=== PATIENT | female | born 1955 | race Caucasian/White ===

== ENCOUNTER 2017-12-23 20:22 | Emergency (ER) | payer OTHER ==
--- NOTE | 2017-12-23 20:34 | PDOC ---
Rapid Medical Evaluation Time Seen by Provider: 12/23/17 20:31 Medical Evaluation: Allergies Allergy/AdvReac Type Severity Reaction Status Date / Time acetaminophen AdvReac Nausea Verified 05/31/16 06:49 [From Tylenol-Codeine #3] codeine phosphate AdvReac Vomiting Verified 05/31/16 06:49 [From Tylenol-Codeine #3] oxycodone HCl [From Percocet] AdvReac Vomiting Verified 05/31/16 06:49 12/23/17 20:32 I have performed a brief in-person evaluation of this patient. The patient presents with a chief complaint of: L shoulder pain x 3 days, hx of asthma, "pain that feels like a burn from top of shoulders to tip of fingers, the pain goes to my back too", SOB, hx of HTN, DM, smoking Pertinent physical exam findings: dyspnea, BP 185/115, tachy to 110 I have ordered the following: cards workup The patient will proceed to the ED for further evaluation. Discharge Disposition - Diagnosis Left arm pain - Referrals - Patient Instructions - Post Discharge Activity
[2017-12-23] MEDS ORDERED: ASPIRIN 81 MG CHEWABLE TABLETS PO ONE (20:35)
[2017-12-23 20:37] VITALS: BMI 34.3
[2017-12-23] MEDS ORDERED: ASPIRIN 81 MG CHEWABLE TABLETS ONE (20:47)
[2017-12-23 20:52] LABS: BASO % 0.9 % (0-2.0); EOS % 0.9 % (0-4.5); HEMATOCRIT 49.3 % (32.4-45.2); HEMOGLOBIN 16.2 GM/dL (10.7-15.3); LYMPH % 25.7 % (8-40); MCH 26.1 pg (25.7-33.7); MCHC 32.8 g/dl (32.0-36.0); MEAN CELL VOLUME 79.6 fl (80-96); MONO % 9.2 % (3.8-10.2); NEUT % 63.3 % (42.8-82.8); PLATELET COUNT 259 K/MM3 (134-434); RBC 6.19 M/mm3 (3.60-5.2); WHITE BLOOD COUNT 16.9 K/mm3 (4.0-10.0)
[2017-12-23] MEDS ORDERED: IBUPROFEN 600 MG TABLET (FP) PO ONE ×2 (21:10→21:12)
[2017-12-23 21:27] LABS: ALBUMIN 3.9 g/dl (3.4-5.0); ANION GAP 8 (8-16); BILIRUBIN,TOTAL 0.3 mg/dL (0.2-1.0); BLOOD UREA NITROGEN 19 mg/dL (7-18); CALCIUM 8.8 mg/dL (8.5-10.1); CHLORIDE 105 mmol/L (98-107); CO2 26 mmol/L (21-32); CREATININE 0.9 mg/dL (0.55-1.02); GLUCOSE,RANDOM 215 mg/dL (74-106); POTASSIUM 3.9 mmol/L (3.5-5.1); SGOT/AST 13 U/L (15-37); SODIUM 139 mmol/L (136-145); TOT PROT 7.5 g/dl (6.4-8.2)
[2017-12-23 21:31] LABS: INR 0.96 (0.82-1.09); PROTHROMBIN TIME (PATIENT) 10.8 SEC (9.98-11.88)
[2017-12-23 21:33] LABS: ALK PHOS 110 U/L (45-117); SGPT/ALT 26 U/L (12-78)
[2017-12-23 23:31] LABS: URINE APPEARANCE CLOUDY; URINE BILIRUBIN NEGATIVE (NEGATIVE); URINE BLOOD 2+ (NEGATIVE); URINE COLOR YELLOW; URINE GLUCOSE (UA) 3+ (NEGATIVE); URINE KETONE TRACE (NEGATIVE); URINE NITRITE NEGATIVE (NEGATIVE); URINE UROBILINOGEN NEGATIVE mg/dL (0.2-1.0)
[2017-12-23 23:33] LABS: URINE LEUK ESTERASE 3+ (NEGATIVE); URINE PROTEIN 2+ (NEGATIVE)
[2017-12-23 23:47] LABS: EPI CELLS MANY /HPF (FEW); GRANULAR CASTS 3 /lpf; URINE MUCUS RARE
[2017-12-24] MEDS ORDERED: morphine CARPU-JECT 2 MG/1 ML DISP.SYRIN IVPUSH ONE (01:07)
[2017-12-24] MEDS ORDERED: morphine CARPU-JECT 2 MG/1 ML DISP.SYRIN IM STA (01:12)
[2017-12-24] MEDS ORDERED: diazePAM 2 MG TABLET PO ONE (01:15)
[2017-12-24] MEDS ORDERED: MORPHINE SULFATE 10 MG/1 ML *VIAL ONE (01:18)
[2017-12-24] MEDS ORDERED: diazePAM 2 MG TABLET ONE (01:18)
[2017-12-24] MEDS ORDERED: amLODIPine BESYLATE 10 MG TABLET (FP) PO ONE (01:21)
[2017-12-24] MEDS ORDERED: amLODIPine BESYLATE 5 MG TABLET (FP) ONE (01:24)
[2017-12-24] MEDS ORDERED: HYDROCHLOROTHIAZIDE 25 MG TABLET (FP) PO ONE (02:08)
[2017-12-24] MEDS ORDERED: cloNIDine HCL 0.1 MG TABLET PO ONE (02:09)
--- NOTE | 2017-12-24 02:10 | PDOC ---
History of Present Illness - General Chief Complaint: Pain, Acute Stated Complaint: ARM PAIN Time Seen by Provider: 12/23/17 20:31 Past History - Past Medical History Allergies/Adverse Reactions: Allergies Allergy/AdvReac Type Severity Reaction Status Date / Time acetaminophen AdvReac Nausea Verified 05/31/16 06:49 [From Tylenol-Codeine #3] codeine phosphate AdvReac Vomiting Verified 05/31/16 06:49 [From Tylenol-Codeine #3] oxycodone HCl [From Percocet] AdvReac Vomiting Verified 05/31/16 06:49 Home Medications: Ambulatory Orders Albuterol Sulfate Inhaler - [Ventolin HFA Inhaler -] 2 inh PO Q6H PRN 05/23/16 Aspirin [Aspirin EC] 81 mg PO DAILY 05/23/16 Fluticasone Prop 0.05% Nasal [Flonase -] 1 - 2 spray NS DAILY PRN 05/23/16 Lisinopril 10 mg PO DAILY 05/23/16 Montelukast Na [Singulair -] 10 mg PO HS 05/23/16 Hydrocodone/Ibuprofen [Hydrocodone-Ibuprofen 5-200 mg] 1 - 2 each PO Q6H #50 tablet MDD 8 05/31/16 Ciprofloxacin [Cipro -] 500 mg PO Q12H #14 tablet 12/24/17 Ibuprofen [Motrin -] 600 mg PO TID PRN #21 tablet 12/24/17 Asthma: Yes Cancer: No Cardiac Disorders: No CVA: No COPD: No CHF: No Dementia: No Diabetes: Yes GI Disorders: No Disorders: No HTN: Yes Hypercholesterolemia: No Liver Disease: No Seizures: No Thyroid Disease: No - Surgical History Abdominal Surgery: No Appendectomy: No Cardiac Surgery: No Cholecystectomy: Yes Lung Surgery: No Neurologic Surgery: No Orthopedic Surgery: No - Suicide/Smoking/Psychosocial Hx Smoking History: Former smoker Have you smoked in the past 12 months: Yes Number of Cigarettes Smoked Daily: 10 Information on smoking cessation initiated: No 'Breaking Loose' booklet given: 03/11/14 Hx Alcohol Use: No Drug/Substance Use Hx: No Substance Use Type: None Hx Substance Use Treatment: No *Physical Exam - Vital Signs Last Vital Signs Temp Pulse Resp BP Pulse Ox 97.4 F L 99 H 21 187/134 99 12/24/17 02:06 12/24/17 01:27 12/24/17 02:06 12/24/17 02:06 12/24/17 02:06 ED Treatment Course - LABORATORY CBC & Chemistry Diagram: 12/23/17 20:42 12/23/17 20:42 - ADDITIONAL ORDERS Additional order review: Laboratory Results 12/23/17 12/23/17 12/23/17 23:23 20:42 20:42 PT with INR INR Sodium 139 Potassium 3.9 Chloride 105 Carbon Dioxide 26 Anion Gap 8 BUN 19 H Creatinine 0.9 Creat Clearance w eGFR > 60 Random Glucose 215 H Calcium 8.8 Magnesium 2.0 Total Bilirubin 0.3 D AST 13 L ALT 26 Alkaline Phosphatase 110 Creatine Kinase 49 Troponin I < 0.02 B-Natriuretic Peptide 757.01 H Total Protein 7.5 Albumin 3.9 Urine Color Yellow Urine Appearance Cloudy Urine pH 5.0 Ur Specific [place] 1.020 Urine Protein 2+ H Urine Glucose (UA) 3+ H Urine Ketones Trace H Urine Blood 2+ H Urine Nitrite Negative Urine Bilirubin Negative Urine Urobilinogen Negative Ur Leukocyte Esterase 3+ H Urine WBC (Auto) 64 Urine RBC (Auto) 5 Ur Epithelial Cells Many Granular Casts 3 Urine Mucus Rare 12/23/17 20:42 PT with INR 10.80 INR 0.96 Sodium Potassium Chloride Carbon Dioxide Anion Gap BUN Creatinine Creat Clearance w eGFR Random Glucose Calcium Magnesium Total Bilirubin AST ALT Alkaline Phosphatase Creatine Kinase Troponin I B-Natriuretic Peptide Total Protein Albumin Urine Color Urine Appearance Urine pH Ur Specific [place] Urine Protein Urine Glucose (UA) Urine Ketones Urine Blood Urine Nitrite Urine Bilirubin Urine Urobilinogen Ur Leukocyte Esterase Urine WBC (Auto) Urine RBC (Auto) Ur Epithelial Cells Granular Casts Urine Mucus 12/23/17 20:42 RBC 6.19 H D MCV 79.6 L MCHC 32.8 RDW 15.0 MPV 9.0 Neutrophils % 63.3 Lymphocytes % 25.7 Monocytes % 9.2 D Eosinophils % 0.9 D Basophils % 0.9 - Medications Given in the ED: ED Medications Discontinued Medications Generic Name Dose Route Start Last Admin Trade Name Freq PRN Reason Stop Dose Admin Amlodipine Besylate 10 mg 12/24/17 01:21 12/24/17 01:26 Norvasc - PO 12/24/17 01:22 10 mg ONCE ONE Administration Aspirin 162 mg 12/23/17 20:35 12/23/17 20:48 Asa - PO 12/23/17 20:36 162 mg ONCE ONE Administration Diazepam 2 mg 12/24/17 01:15 12/24/17 01:23 Valium - PO 12/24/17 01:16 2 mg ONCE ONE Administration Ibuprofen 600 mg 12/23/17 21:10 12/23/17 21:17 Motrin - PO 12/23/17 21:11 600 mg ONCE ONE Administration Levofloxacin 500 mg 12/24/17 01:55 12/24/17 02:07 Levaquin - PO 12/24/17 01:56 500 mg ONCE ONE Administration Morphine Sulfate 2 mg 12/24/17 01:07 12/24/17 01:47 Morphine Injection - IVPUSH 12/24/17 01:08 Not Given ONCE ONE Morphine Sulfate 4 mg 12/24/17 01:12 12/24/17 01:23 Morphine Injection - IM 12/24/17 01:13 4 mg ONCE STA Administration *DC/Admit/Observation/Transfer Diagnosis at time of Disposition: Left arm pain, Pain of left scapula Hypertension Qualifiers: Hypertension type: unspecified Qualified Code(s): I10 - Essential (primary) hypertension - Discharge Dispostion Condition at time of disposition: Improved - Prescriptions Prescriptions: Ciprofloxacin [Cipro -] 500 mg PO Q12H #14 tablet Ibuprofen [Motrin -] 600 mg PO TID PRN #21 tablet PRN Reason: Pain Level 6-10 - Referrals - Patient Instructions Printed Discharge Instructions: DI for High Blood Pressure Additional Instructions: You need to see your regular doctor this week to further evaluate your blood pressure you need to see the orthopedist for your 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
[2017-12-24] MEDS ORDERED: HYDROCHLOROTHIAZIDE 25 MG TABLET (FP) ONE (02:15)
[2017-12-24] MEDS ORDERED: cloNIDine HCL 0.1 MG TABLET ONE (02:15)
[2017-12-24] MEDS ORDERED: hydrALAZINE HCL 20 MG/ML VIAL IVPUSH ONE (03:37)
[2017-12-24] MEDS ORDERED: hydrALAZINE HCL 20 MG/ML VIAL ONE (03:39)
[2017-12-24] MEDS ORDERED: ONDANSETRON 4 MG/2 ML VIAL IVPUSH STA (03:49)
[2017-12-24] MEDS ORDERED: ONDANSETRON 4 MG/2 ML VIAL ONE (03:50)
[2017-12-24] MEDS ORDERED: METOPROLOL TARTRATE 5 MG/5 ML VIAL IVPUSH ONE (05:43)
[2017-12-24] MEDS ORDERED: METOPROLOL TARTRATE 5 MG/5 ML VIAL ONE (05:50)
[2017-12-24 06:31] VITALS: TEMP 97.6
[2017-12-24] MEDS ORDERED: NITROGLYCERIN 2% OINTMENT - 1GM PACKET TD ONE ×2 (06:40→06:43)
--- NOTE | 2017-12-24 06:43 | PDOC ---
*Physical Exam - Vital Signs Last Vital Signs Temp Pulse Resp BP Pulse Ox 97.6 F 68 17 179/91 98 12/24/17 06:31 12/24/17 06:31 12/24/17 06:31 12/24/17 06:31 12/24/17 06:31 ED Treatment Course - LABORATORY CBC & Chemistry Diagram: 12/23/17 20:42 12/23/17 20:42 - ADDITIONAL ORDERS Additional order review: Laboratory Results 12/23/17 12/23/17 12/23/17 23:23 20:42 20:42 PT with INR INR Sodium 139 Potassium 3.9 Chloride 105 Carbon Dioxide 26 Anion Gap 8 BUN 19 H Creatinine 0.9 Creat Clearance w eGFR > 60 Random Glucose 215 H Calcium 8.8 Magnesium 2.0 Total Bilirubin 0.3 D AST 13 L ALT 26 Alkaline Phosphatase 110 Creatine Kinase 49 Troponin I < 0.02 B-Natriuretic Peptide 757.01 H Total Protein 7.5 Albumin 3.9 Urine Color Yellow Urine Appearance Cloudy Urine pH 5.0 Ur Specific [place] 1.020 Urine Protein 2+ H Urine Glucose (UA) 3+ H Urine Ketones Trace H Urine Blood 2+ H Urine Nitrite Negative Urine Bilirubin Negative Urine Urobilinogen Negative Ur Leukocyte Esterase 3+ H Urine WBC (Auto) 64 Urine RBC (Auto) 5 Ur Epithelial Cells Many Granular Casts 3 Urine Mucus Rare 12/23/17 20:42 PT with INR 10.80 INR 0.96 Sodium Potassium Chloride Carbon Dioxide Anion Gap BUN Creatinine Creat Clearance w eGFR Random Glucose Calcium Magnesium Total Bilirubin AST ALT Alkaline Phosphatase Creatine Kinase Troponin I B-Natriuretic Peptide Total Protein Albumin Urine Color Urine Appearance Urine pH Ur Specific [place] Urine Protein Urine Glucose (UA) Urine Ketones Urine Blood Urine Nitrite Urine Bilirubin Urine Urobilinogen Ur Leukocyte Esterase Urine WBC (Auto) Urine RBC (Auto) Ur Epithelial Cells Granular Casts Urine Mucus 12/23/17 20:42 RBC 6.19 H D MCV 79.6 L MCHC 32.8 RDW 15.0 MPV 9.0 Neutrophils % 63.3 Lymphocytes % 25.7 Monocytes % 9.2 D Eosinophils % 0.9 D Basophils % 0.9 - Medications Given in the ED: ED Medications Discontinued Medications Generic Name Dose Route Start Last Admin Trade Name Freq PRN Reason Stop Dose Admin Amlodipine Besylate 10 mg 12/24/17 01:21 12/24/17 01:26 Norvasc - PO 12/24/17 01:22 10 mg ONCE ONE Administration Aspirin 162 mg 12/23/17 20:35 12/23/17 20:48 Asa - PO 12/23/17 20:36 162 mg ONCE ONE Administration Clonidine 0.1 mg 12/24/17 02:09 12/24/17 02:18 Catapres - PO 12/24/17 02:10 0.1 mg ONCE ONE Administration Diazepam 2 mg 12/24/17 01:15 12/24/17 01:23 Valium - PO 12/24/17 01:16 2 mg ONCE ONE Administration Hydralazine HCl 10 mg 12/24/17 03:37 12/24/17 03:53 Apresoline Injection - IVPUSH 12/24/17 03:38 10 mg ONCE ONE Administration Hydrochlorothiazide 25 mg 12/24/17 02:08 12/24/17 02:18 Hctz - PO 12/24/17 02:09 25 mg ONCE ONE Administration Ibuprofen 600 mg 12/23/17 21:10 12/23/17 21:17 Motrin - PO 12/23/17 21:11 600 mg ONCE ONE Administration Levofloxacin 500 mg 12/24/17 01:55 12/24/17 02:07 Levaquin - PO 12/24/17 01:56 500 mg ONCE ONE Administration Metoprolol Tartrate 10 mg 12/24/17 05:43 12/24/17 05:49 Lopressor Injection - IVPUSH 12/24/17 05:44 10 mg ONCE ONE Administration Morphine Sulfate 2 mg 12/24/17 01:07 12/24/17 01:47 Morphine Injection - IVPUSH 12/24/17 01:08 Not Given ONCE ONE Morphine Sulfate 4 mg 12/24/17 01:12 12/24/17 01:23 Morphine Injection - IM 12/24/17 01:13 4 mg ONCE STA Administration Ondansetron HCl 4 mg 12/24/17 03:49 12/24/17 03:53 Zofran Injection IVPUSH 12/24/17 03:50 4 mg ONCE STA Administration Oxycodone/Acetaminophen 2 combo 12/24/17 02:31 12/24/17 02:38 Percocet 5/325 - PO 12/24/17 02:32 2 combo ONCE ONE Administration Medical Decision Making - Medical Decision Making 12/24/17 06:40 Pt BP is still high, however pt is asymptomatic at this time. Pt wants to get the BP down so that she can go home. Pt will still be treated and will be signed out to AM physician. *DC/Admit/Observation/Transfer Diagnosis at time of Disposition: Left arm pain, Pain of left scapula Hypertension Qualifiers: Hypertension type: unspecified Qualified Code(s): I10 - Essential (primary) hypertension - Discharge Dispostion Condition at time of disposition: Improved - Prescriptions Prescriptions: Ciprofloxacin [Cipro -] 500 mg PO Q12H #14 tablet Ibuprofen [Motrin -] 600 mg PO TID PRN #21 tablet PRN Reason: Pain Level 6-10 - Referrals - Patient Instructions Printed Discharge Instructions: DI for High Blood Pressure Additional Instructions: You need to see your regular doctor this week to further evaluate your blood pressure you need to see the orthopedist for your 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
--- NOTE | 2017-12-24 08:58 | PDOC ---
*Physical Exam - Vital Signs Last Vital Signs Temp Pulse Resp BP Pulse Ox 97.6 F 75 18 174/95 98 12/24/17 06:31 12/24/17 08:10 12/24/17 08:10 12/24/17 08:10 12/24/17 08:10 - Physical Exam Comments: 12/24/17 08:51 Patient is a well-appearing 62-year-old female with history of hypertension, diabetes, who presented to the ER with elevated blood pressure and symptoms of urinary tract infection. Patient's received numerous by mouth and IV meds for elevated blood pressure. Patient is symptom-free. Patient is also received Levaquin for a suspected UTI. Patient was blood pressure is noted to be 171/91. Patient displays no evidence of end organ damage. CBC reveals leukocytosis with elevated H&H likely related to hemoconcentration. Urine cultures been obtained. I've discussed hypertension treatment with patient. She'll be discharged with was in January/hydrochlorothiazide with outpatient follow-up further management of and evaluation of high blood pressure. ED Treatment Course - LABORATORY CBC & Chemistry Diagram: 12/23/17 20:42 12/23/17 20:42 - ADDITIONAL ORDERS Additional order review: Laboratory Results 12/23/17 12/23/17 12/23/17 23:23 20:42 20:42 PT with INR INR Sodium 139 Potassium 3.9 Chloride 105 Carbon Dioxide 26 Anion Gap 8 BUN 19 H Creatinine 0.9 Creat Clearance w eGFR > 60 Random Glucose 215 H Calcium 8.8 Magnesium 2.0 Total Bilirubin 0.3 D AST 13 L ALT 26 Alkaline Phosphatase 110 Creatine Kinase 49 Troponin I < 0.02 B-Natriuretic Peptide 757.01 H Total Protein 7.5 Albumin 3.9 Urine Color Yellow Urine Appearance Cloudy Urine pH 5.0 Ur Specific [place] 1.020 Urine Protein 2+ H Urine Glucose (UA) 3+ H Urine Ketones Trace H Urine Blood 2+ H Urine Nitrite Negative Urine Bilirubin Negative Urine Urobilinogen Negative Ur Leukocyte Esterase 3+ H Urine WBC (Auto) 64 Urine RBC (Auto) 5 Ur Epithelial Cells Many Granular Casts 3 Urine Mucus Rare 12/23/17 20:42 PT with INR 10.80 INR 0.96 Sodium Potassium Chloride Carbon Dioxide Anion Gap BUN Creatinine Creat Clearance w eGFR Random Glucose Calcium Magnesium Total Bilirubin AST ALT Alkaline Phosphatase Creatine Kinase Troponin I B-Natriuretic Peptide Total Protein Albumin Urine Color Urine Appearance Urine pH Ur Specific [place] Urine Protein Urine Glucose (UA) Urine Ketones Urine Blood Urine Nitrite Urine Bilirubin Urine Urobilinogen Ur Leukocyte Esterase Urine WBC (Auto) Urine RBC (Auto) Ur Epithelial Cells Granular Casts Urine Mucus 12/23/17 20:42 RBC 6.19 H D MCV 79.6 L MCHC 32.8 RDW 15.0 MPV 9.0 Neutrophils % 63.3 Lymphocytes % 25.7 Monocytes % 9.2 D Eosinophils % 0.9 D Basophils % 0.9 - Medications Given in the ED: ED Medications Discontinued Medications Generic Name Dose Route Start Last Admin Trade Name Freq PRN Reason Stop Dose Admin Amlodipine Besylate 10 mg 12/24/17 01:21 12/24/17 01:26 Norvasc - PO 12/24/17 01:22 10 mg ONCE ONE Administration Aspirin 162 mg 12/23/17 20:35 12/23/17 20:48 Asa - PO 12/23/17 20:36 162 mg ONCE ONE Administration Clonidine 0.1 mg 12/24/17 02:09 12/24/17 02:18 Catapres - PO 12/24/17 02:10 0.1 mg ONCE ONE Administration Diazepam 2 mg 12/24/17 01:15 12/24/17 01:23 Valium - PO 12/24/17 01:16 2 mg ONCE ONE Administration Hydralazine HCl 10 mg 12/24/17 03:37 12/24/17 03:53 Apresoline Injection - IVPUSH 12/24/17 03:38 10 mg ONCE ONE Administration Hydrochlorothiazide 25 mg 12/24/17 02:08 12/24/17 02:18 Hctz - PO 12/24/17 02:09 25 mg ONCE ONE Administration Ibuprofen 600 mg 12/23/17 21:10 12/23/17 21:17 Motrin - PO 12/23/17 21:11 600 mg ONCE ONE Administration Levofloxacin 500 mg 12/24/17 01:55 12/24/17 02:07 Levaquin - PO 12/24/17 01:56 500 mg ONCE ONE Administration Metoprolol Tartrate 10 mg 12/24/17 05:43 12/24/17 05:49 Lopressor Injection - IVPUSH 12/24/17 05:44 10 mg ONCE ONE Administration Morphine Sulfate 2 mg 12/24/17 01:07 12/24/17 01:47 Morphine Injection - IVPUSH 12/24/17 01:08 Not Given ONCE ONE Morphine Sulfate 4 mg 12/24/17 01:12 12/24/17 01:23 Morphine Injection - IM 12/24/17 01:13 4 mg ONCE STA Administration Nitroglycerin 1 inch 12/24/17 06:40 12/24/17 06:46 Nitro-Bid 2% Paste - TD 12/24/17 06:41 1 inch ONCE ONE Administration Ondansetron HCl 4 mg 12/24/17 03:49 12/24/17 03:53 Zofran Injection IVPUSH 12/24/17 03:50 4 mg ONCE STA Administration Oxycodone/Acetaminophen 2 combo 12/24/17 02:31 12/24/17 02:38 Percocet 5/325 - PO 12/24/17 02:32 2 combo ONCE ONE Administration *DC/Admit/Observation/Transfer Diagnosis at time of Disposition: Left arm pain, Pain of left scapula Hypertension Qualifiers: Hypertension type: unspecified Qualified Code(s): I10 - Essential (primary) hypertension Urinary tract infection Qualifiers: Urinary tract infection type: acute cystitis Hematuria presence: with hematuria Qualified Code(s): N30.01 - Acute cystitis with hematuria - Discharge Dispostion Disposition: HOME Condition at time of disposition: Stable - Prescriptions Prescriptions: Ciprofloxacin [Cipro -] 500 mg PO Q12H #14 tablet Ibuprofen [Motrin -] 600 mg PO TID PRN #21 tablet PRN Reason: Pain Level 6-10 - Referrals - Patient Instructions Printed Discharge Instructions: DI for High Blood Pressure, DI for Urinary Tract Infection (UTI) Additional Instructions: You need to see your regular doctor this week to further evaluate your blood pressure you need to see the orthopedist for 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
[2017-12-24 09:05] VITALS: BP 169/99; PULSE 76
--- NOTE | 2017-12-24 11:06 | EKG ---
Test Reason : Blood Pressure : / mmHG Vent. Rate : 097 BPM Atrial Rate : 097 BPM P-R Int : 150 ms QRS Dur : 078 ms QT Int : 366 ms P-R-T Axes : 057 -16 037 degrees QTc Int : 464 ms POOR DATA QUALITY, INTERPRETATION MAY BE ADVERSELY AFFECTED NORMAL SINUS RHYTHM SEPTAL INFARCT , AGE UNDETERMINED ABNORMAL ECG WHEN COMPARED WITH ECG OF 23-MAY-2016 11:25, VENT. RATE HAS INCREASED BY 33 BPM SEPTAL INFARCT IS NOW PRESENT NONSPECIFIC T WAVE ABNORMALITY NO LONGER EVIDENT IN LATERAL LEADS Confirmed by EDIE YBARRA, KYLE ([id number]) on 12/24/2017 11:05:38 AM Referred By: Confirmed By:KYLE IRIZARRY MD
== END 2017-12-24 09:05 | disposition home or self-care (01) ==
LOC: JER 20:22
PROC: 3E033NZ Introduction of Analgesics, Hypnotics, Sedatives into Peripheral Vein, Percutaneous Approach (ICD-10-PCS; principal; 2017-12-23)
PROC: 3E033GC Introduction of Other Therapeutic Substance into Peripheral Vein, Percutaneous Approach (ICD-10-PCS; 2017-12-23)
PROC: 3E033GC Introduction of Other Therapeutic Substance into Peripheral Vein, Percutaneous Approach (ICD-10-PCS; 2017-12-23)
PROC: 3E033GC Introduction of Other Therapeutic Substance into Peripheral Vein, Percutaneous Approach (ICD-10-PCS; 2017-12-23)
DX: I10 Essential (primary) hypertension (principal); N30.01 Acute cystitis with hematuria; E11.9 Type 2 diabetes mellitus without complications; F17.210 Nicotine dependence, cigarettes, uncomplicated
CPT/HCPCS: 36415; 71046-TC-FY; 80053; 81003; 81015; 82550; 83735; 83880; 84484; 85025; 85610; 93005; 93010; 96372; 96374; 96375; 99283-25; J0735